=== PATIENT | male | born 1960 | race Caucasian/White ===

== ENCOUNTER → 2017-06-20 | Outpatient (CLI) | payer BC | END | disposition disaster alternative care site (69) | LOC: GRAD 10:06 | DX: C61 Malignant neoplasm of prostate (principal); M25.551 Pain in right hip | CPT/HCPCS: A9503 ==

== ENCOUNTER 2017-07-25 21:45 | Emergency (ER) | payer BC ==
--- NOTE | ~2017-07-25 | ER ---
PATIENT'S NAME: MASSIMO COY [facility] AGE: 56 Y [address] ROOM: [place] [address] LOCATION: [facility] ADMIT DATE: 07/25/2017 ER/Outpatient Report DISCHARGE DATE: 07/25/2017 FAMILY PHYSICIAN: Physician, Unknown ATTENDING PHYSICIAN: Sanford Quintero Time of Arrival: 1938 hours. Time of Evaluation: 1938 hours. CHIEF COMPLAINT: Syncopal episode. HISTORY OF PRESENT ILLNESS: The patient arrived per [facility]. The patient states that he did have radiation therapy this morning for his prostate cancer and then helped his daughter move this afternoon. This evening, about 40 minutes prior to arrival, he was sitting on the porch, he drank 2 beers, then he passed out. Upon arrival of the ambulance, he was lying on the couch, he was awake, alert, and able to answer questions. He states that he felt he over did it. He was diaphoretic. Blood pressure was low at that time and he was lightheaded, so agreed to be transported. They did start an IV and start a liter of fluids, transmitted to ER. Upon arrival to the ER, the patient denies having any pain or discomfort. Denies feeling dizzy or lightheaded at this time. Denies being nauseated, has not vomited today. States he does feel fatigued, but otherwise states he has had no changes. ALLERGIES: HE HAS NO KNOWN ALLERGIES. CURRENT MEDICATIONS: Diovan. PAST MEDICAL HISTORY: Hypertension, erectile dysfunction, prostate cancer, sigmoid diverticulosis, and bilateral inguinal hernias. PAST SURGERIES: Prostatectomy, prostate biopsy, and nasal septum surgery. SOCIAL HISTORY: Smokes a pack per day. Does drink alcohol on a daily basis. States he drinks 4 to 5 drinks per day. REVIEW OF SYSTEMS: Negative other than those mentioned in the HPI. PATIENT'S NAME: MASSMIO COY [facility] AGE: 56 Y [address] ROOM: [place] [address] LOCATION: [facility] ADMIT DATE: 07/25/2017 ER/Outpatient Report DISCHARGE DATE: 07/25/2017 FAMILY PHYSICIAN: Physician, Unknown ATTENDING PHYSICIAN: Sanford Quintero PHYSICAL EXAMINATION: VITAL SIGNS: Stated weight is 235 pounds. Blood pressure initially was 108/60, pulse was 76, respirations 18, temperature was 97.6 tympanic, and O2 saturation was 96% on room air. Farzad Coma Scale was 15. GENERAL: He is awake, alert, and oriented x4. SKIN: [place], warm, and dry. RESPIRATIONS: Even and nonlabored. HEENT: Pupils are equal and reactive to light. Extraocular movement is intact. NECK: Supple. No lymphadenopathy. LUNGS: Lung sounds are clear throughout. HEART: Regular rate and rhythm. ABDOMEN: Soft. Nondistended. Bowel sounds are present. EXTREMITIES: He moves all extremities strongly and equally. He has IV in the right antecubital area with normal saline run,that was started in the field. LABORATORY DATA AND X-RAYS: EKG was completed, it shows sinus rhythm. CBC: White count is 4.4, hemoglobin is 11.5, ANC is 2.9, and platelets are 198. Chem panel: Sodium is 130, potassium is 2.6, chloride is 97, BUN is 12 with a creatinine of 0.8. His CPK is 196, CK-MB is 2.8, and troponin is negative. ProBNP was 164. Lactate was 2.1. Procalcitonin was normal. EMERGENCY DEPARTMENT COURSE: He was monitored. He states he was feeling better. Blood pressure did come up. We did do orthostatic blood pressures: Lying was 133/76, pulse of 81; sitting 141/80, pulse of 82; standing 145/75, pulse is 79. Denied being dizzy or lightheaded when he stood. IMPRESSION: 1. Dehydration. 2. Syncopal or near syncopal episode. 3. Prostate cancer, which he is receiving radiation therapy for. PLAN: Home. Rest. Fluids. Encouraged him to not have any alcoholic beverages and to follow up with his primary provider in the next 2 to 3 days. He verbalized understanding. ZACHARY MATSON APRN FOR SNAFORD QUINTERO MD PATIENT'S NAME: MASSIMO COY [facility] AGE: 56 Y [address] ROOM: [place] [address] LOCATION: [facility] ADMIT DATE: 07/25/2017 ER/Outpatient Report DISCHARGE DATE: 07/25/2017 FAMILY PHYSICIAN: Physician, Asaf ATTENDING PHYSICIAN: Sanford Quintero/demarcus /[id number] d: 07/26/17 0331 t: 08/05/17 1810, OUTPATIENT REPORT
[2017-07-25 22:08] LABS: HEMATOCRIT 31.6 % (37.0-53.0); HEMOGLOBIN 11.5 g/dL (12.0-17.0); MCH 32.5 pg (27.0-34.0); MCHC 36.4 gm/dL (32.0-36.5); MCV 89.3 fl (83.0-98.0); MPV 9.5 fl (9.4-12.4); PLATELET COUNT 198 K/uL (150-450); RBC 3.54 M/uL (4.00-6.00); RDW-CV 12.1 % (11.9-14.6); WBC 4.4 K/uL (4.0-11.0)
[2017-07-25 22:17] LABS: INR - (THERAPEUTIC) 0.97 (0.92-1.07); PROTIME 10.2 SECONDS (9.8-11.4); PTT 25 SECONDS (25-32)
[2017-07-25 22:29] LABS: ALBUMIN 3.2 gm/dL (3.5-5.0); ALK PHOS 62 IU/L (33-138); ALT 27 IU/L (12-78); AST 18 IU/L (10-40); BLOOD UREA NITROGEN 12 mg/dL (6-24); CALCIUM 7.9 mg/dL (8.5-10.5); CHLORIDE 97 mMol/L (96-110); CO2 22 mMol/L (22-32); CPK 196 IU/L (35-332); CREATININE 0.8 mg/dL (0.6-1.3); SODIUM 130 mMol/L (135-145); TOTAL BILIRUBIN 0.3 mg/dL (0.0-1.5); TOTAL PROTEIN 6.2 g/dL (6.0-8.4)
[2017-07-25 22:31] LABS: ANION GAP 13.6 (10.0-19.0); POTASSIUM 2.6 mMol/L (3.7-5.1)
[2017-07-25 22:32] LABS: ABSOLUTE NEUTROPHIL CT (ANC) 2.9 K/uL (1.4-9.0); BANDED NEUTROPHIL # 0.2 K/uL (0.0-0.1); BANDED NEUTROPHILS % 5 %; LYMPHOCYTE # 0.8 K/uL (0.8-4.0); LYMPHOCYTE % 18 %; MONOCYTE # 0.3 K/uL (0.0-1.0); SEGMENTED NEUTROPHIL # 2.7 K/uL (1.4-9.0); SEGMENTED NEUTROPHIL % 61 %
== END 2017-07-25 23:13 | disposition disaster alternative care site (69) ==
LOC: GMED 21:45
PROVIDERS: Nurse Practitioner Family
DX: R55 Syncope and collapse (principal); E86.0 Dehydration; C61 Malignant neoplasm of prostate; I10 Essential (primary) hypertension; N52.9 Male erectile dysfunction, unspecified; F17.210 Nicotine dependence, cigarettes, uncomplicated; Z98.890 Other specified postprocedural states; Z79.899 Other long term (current) drug therapy

== ENCOUNTER → 2017-07-25 | Outpatient (CLI) | payer BC | END | disposition disaster alternative care site (69) | LOC: GAMB 21:11 | DX: R55 Syncope and collapse (principal); C61 Malignant neoplasm of prostate; I10 Essential (primary) hypertension | CPT/HCPCS: A0425; A0427; J7030 ==